=== PATIENT | female | born 1950 | race Two or more races ===

== ENCOUNTER 2018-04-22 09:49 | Outpatient (CLI) | payer OTHER ==
[~2018-04-22 09:49] MED LIST: LIPITOR20 MG; SYNTHROID112 MCG
== END 2018-04-22 11:29 | disposition home or self-care (01) ==
LOC: RAD 09:49
DX: S20.219A Contusion of unspecified front wall of thorax, initial encounter (principal)

== ENCOUNTER 2020-12-16 14:09 | Outpatient (CLI) | payer OTHER | END 2020-12-16 14:19 | disposition home or self-care (01) | LOC: MAMO-SONO 14:09 | PROVIDERS: ATTEND Family Medicine | DX: R92.1 Mammographic calcification found on diagnostic imaging of breast (principal); N64.89 Other specified disorders of breast; Z12.31 Encounter for screening mammogram for malignant neoplasm of breast ==

== ENCOUNTER 2021-06-12 17:30 | Emergency (ER) | payer OTHER ==
[~2021-06-12] VITALS: Ht 172.7 cm; Wt 86.2 kg
== END 2021-06-12 23:08 | disposition home or self-care (01) ==
LOC: ER 17:30
DX: S62.666A Nondisplaced fracture of distal phalanx of right little finger, initial encounter for closed fracture (principal); X58.XXXA Exposure to other specified factors, initial encounter; Y93.89 Activity, other specified; Y92.9 Unspecified place or not applicable; Y99.9 Unspecified external cause status

== ENCOUNTER 2021-09-11 10:29 | Outpatient (CLI) | payer OTHER | END 2021-09-11 10:37 | disposition home or self-care (01) | LOC: RAD 10:29 | PROVIDERS: ATTEND Family Medicine | DX: S83.91XD Sprain of unspecified site of right knee, subsequent encounter (principal) ==

== ENCOUNTER 2021-09-11 11:39 | Outpatient (CLI) | payer OTHER | END 2021-09-11 11:40 | disposition home or self-care (01) | LOC: NUCLEAR 11:39 | PROVIDERS: ATTEND Family Medicine | DX: M81.0 Age-related osteoporosis without current pathological fracture (principal); Z88.2 Allergy status to sulfonamides ==

== ENCOUNTER 2021-10-13 11:35 | Outpatient (CLI) | payer OTHER | END 2021-10-13 11:41 | disposition home or self-care (01) | LOC: RAD 11:35 | PROVIDERS: ATTEND Physical Medicine & Rehabilitation Sports Medicine | DX: M17.12 Unilateral primary osteoarthritis, left knee (principal) ==

== ENCOUNTER 2023-04-21 15:42 | Outpatient (CLI) | payer OTHER | END 2023-04-21 15:43 | disposition home or self-care (01) | LOC: MAMO-SONO 15:42 | PROVIDERS: ATTEND Family Medicine | DX: Z12.31 Encounter for screening mammogram for malignant neoplasm of breast (principal); N60.09 Solitary cyst of unspecified breast; R31.21 Asymptomatic microscopic hematuria ==

== ENCOUNTER 2023-05-09 15:42 | Emergency (ER) | payer OTHER ==
[~2023-05-09] VITALS: Ht 172.7 cm; Wt 88.5 kg
[2023-05-09] MEDS ORDERED: ROSUVASTATIN CA20 MG PO (16:26)
[2023-05-09] MEDS ORDERED: OxyCODONE HCL/APAP UD (PERCOCET) PO ONE (19:00)
[2023-05-09] MEDS ORDERED: IBUprofen 400 MG TABLET PO ONE (19:00)
== END 2023-05-09 22:52 | disposition home or self-care (01) ==
LOC: ER 15:43
DX: S52.592A Other fractures of lower end of left radius, initial encounter for closed fracture (principal); W18.39XA Other fall on same level, initial encounter; Y93.B9 Activity, other involving muscle strengthening exercises; Y92.89 Other specified places as the place of occurrence of the external cause; Z88.2 Allergy status to sulfonamides; E78.00 Pure hypercholesterolemia, unspecified; E03.9 Hypothyroidism, unspecified

== ENCOUNTER 2023-05-17 08:52 | Outpatient (CLI) | payer OTHER ==
[~2023-05-17 08:52] MED LIST changes: +ROSUVASTATIN CA20 MG PO
== END 2023-05-17 08:54 | disposition home or self-care (01) ==
LOC: RAD 08:52
PROVIDERS: ATTEND Orthopaedic Surgery
DX: S52.532A Colles' fracture of left radius, initial encounter for closed fracture (principal)

== ENCOUNTER 2023-06-07 08:49 | Outpatient (CLI) | payer OTHER | END 2023-06-07 08:54 | disposition home or self-care (01) | LOC: RAD 08:49 | PROVIDERS: ATTEND Orthopaedic Surgery | DX: S52.532A Colles' fracture of left radius, initial encounter for closed fracture (principal) ==

== ENCOUNTER 2023-12-23 10:28 | Outpatient (CLI) | payer OTHER | END 2023-12-23 10:35 | disposition home or self-care (01) | LOC: RAD 10:28 | PROVIDERS: ATTEND Family Medicine | DX: S93.402A Sprain of unspecified ligament of left ankle, initial encounter (principal) ==

== ENCOUNTER 2024-05-30 13:19 | Outpatient (CLI) | payer OTHER | END 2024-05-30 13:20 | disposition home or self-care (01) | LOC: NUCLEAR 13:19 | PROVIDERS: ATTEND Family Medicine | DX: M81.0 Age-related osteoporosis without current pathological fracture (principal) ==